=== PATIENT | male | born 1990 | race Two or more races ===

== ENCOUNTER 2023-06-11 13:03 | Outpatient (OUT) | payer BC, SELFPAY ==
[2023-06-11 13:31] LABS: Erythrocyte Sedimentation Rate 18 mm/hr (<=15)
[2023-06-11 13:40] LABS: C Reactive Protein <0.2 mg/dL (<=1.0)
[2023-06-11 13:55] LABS: Percent Iron Saturation 29.2 %
== END 2023-06-11 13:04 | disposition home or self-care (01) ==
LOC: LAB 13:05
PROVIDERS: PCP Nurse Practitioner
DX: G25.81 Restless legs syndrome (principal); E61.1 Iron deficiency
CPT/HCPCS: 36415; 82728; 83540; 83550; 85652; 86140

== ENCOUNTER 2024-07-27 13:51 | Outpatient (OUT) | payer BC, SELFPAY ==
--- NOTE | 2024-07-27 14:22 | XR_ITS ---
The [address] [address] Patient Name: SHAIKH Devon GARZA MRN: [id number] date: 1990 Sex: M Assigned Patient Location: [facility] Current Patient Location: Accession/Order Number: [id number] Exam Date: 07/27/2024 14:18 Report Date: 07/29/2024 06:18 At the request of: RIGO ADLER Procedure: XR foot LT min 3V PROCEDURE: XR foot LT min 3V HISTORY: Left Foot Pain COMPARISON: None. FINDINGS: BONES:No fracture, acute abnormality, or significant arthropathy. SOFT TISSUES:No visible soft tissue swelling. EFFUSION:None visible. OTHER: Negative. XR/XR foot LT min 3V IMPRESSION: 1. No acute bone abnormality or significant degenerative joint disease. 2. No appreciable loss of plantar arch. Electronically authenticated by: GATO SWEENEY Date: 07/29/2024 06:18
== END 2024-07-27 13:52 | disposition home or self-care (01) ==
LOC: RAD 13:54
PROVIDERS: PCP Nurse Practitioner; Visit Provider Podiatrist Foot & Ankle Surgery
DX: M79.672 Pain in left foot (principal)
CPT/HCPCS: 73630

== ENCOUNTER 2025-02-10 09:15 | Outpatient (OUT) | payer OTHER, SELFPAY ==
--- NOTE | 2025-02-10 11:28 | US_ITS ---
[place] [address] Patient Name: SHAIKH Devon GARZA MRN: [id number] date: 1990 Sex: M Assigned Patient Location: US Current Patient Location: US Accession/Order Number: [id number] Exam Date: 02/10/2025 13:05 Report Date: 02/10/2025 13:06 At the request of: ARIEL CHEN NP Procedure: US right upper quadrant LIMITED ABDOMINAL ULTRASOUND: CLINICAL HISTORY: Right Upper Quadrant Pain COMPARISON: None TECHNIQUE: Grayscale and color Doppler images of the right upper quadrant organs were obtained. FINDINGS: Pancreas: Visualized portions appear unremarkable. Liver: Unremarkable. Gallbladder: Small amount of sludge. No wall thickening. Negative Lofton sign. CBD: 1.6 mm RT KIDNEY: No Hydronephrosis US/US right upper quadrant IMPRESSION: GALLBLADDER SLUDGE. NO ACUTE PROCESS IS SEEN.. Impression dictated by: Reyes Cleveland Jr., D.O. 02/10/2025 1:06 PM Dictation Location: [place] [address] Electronically authenticated by: [id number] Y Date: 02/10/2025 13:06
== END 2025-02-10 09:16 | disposition home or self-care (01) ==
PROVIDERS: PCP Nurse Practitioner; Visit Provider Nurse Practitioner
DX: R10.11 Right upper quadrant pain (principal)
CPT/HCPCS: 76705

== ENCOUNTER 2025-02-26 08:02 | Outpatient (OUT) | payer OTHER, SELFPAY ==
--- OUTSIDE RECORDS SUMMARY | 2025-02-24 13:26 | XMS_ITS ---
Author Name Auto Generated Organization [facility] Care Team Providers Care Ged Preparation Teacher Name Role Phone JOSE SAHA Attending Unavailable GEMINI CHIN Referring Unavailable GEMINI CHIN Primary Care Unavailable LUIS CARLOS NEWMAN Attending Unavailable GEMINI CHIN Referring Unavailable GEMINI CHIN Primary Care Unavailable GEMINI CHIN Referring Unavailable GEMINI CHIN Primary Care Unavailable PROBLEMS DATE TYPE CONDITION / CODE ATTENDING STATUS [facility] 02/24/2025 Admitting Diagnosis Calculus of gallbladder without cholecystitis without obstruction / K80.20(ICD-10) JOSE SAHA Active [facility] 02/24/2025 Admitting Diagnosis Right upper quadrant pain / R10.11(ICD-10) JOSE SAHA Active [facility] 02/05/2025 Unknown Calculus of bile duct without cholangitis or cholecystitis without obstruction / K80.50(ICD-10) LUIS CARLOS NEWMAN [facility] 02/05/2025 Unknown Bacteriuria / R82.71(ICD-10) LUIS CARLOS NEWMAN [facility] 08/04/2024 Admitting diagnosis Encounter for screening for respiratory tuberculosis / Z11.1(ICD-10) NA [facility] PROCEDURES No Procedure Records Found RESULTS CONSULT Observed: 02/24/2025 1:15 PM Status: COMPLETED Source: [facility] [id number] Shaikh Garza [birth year] M Date Provider Department Center 02/24/2025 454-JOSE SAHA [facility] SURG Second Fl No family history on file Level of Service:65432 [place] OFFICE/OUTPATIENT ESTABLISHED LOW MDM 20 MIN Reason for Visit and Comments: Consult [484] - Consult for abdominal pain - reports recent GB US completed [facility] showing GB sludge. PROGRESS Observed: 02/24/2025 1:15 PM Status: COMPLETED Source: [facility] Subjective Patient ID: Shaikh Jeremiah is a 34 y.o. male who presents for Consult (Consult for abdominal pain - reports recent GB US completed [facility] showing GB sludge. ). Abdominal Pain This is a recurrent problem. The current episode started 1 to 4 weeks ago. The onset quality is gradual. The problem occurs 2 to 4 times per day. The most recent episode lasted 3 days. The problem has been resolved. The pain is located in the RUQ. The pain is at a severity of 6/10. The quality of the pain is aching, cramping and dull. The abdominal pain does not radiate. Associated symptoms include nausea. Pertinent negatives include no anorexia, belching, flatus, hematochezia, melena or weight loss. The pain is aggravated by eating. The pain is relieved by Nothing. Prior diagnostic workup includes ultrasound. 34 years old male is visiting for chronic right upper quadrant pain intermittently. He had at least 2 episodes of right upper quadrant pain attack resolving ER visit. He denies of fever or chills. He denies of jaundice. Review of Systems Constitutional: Negative. Negative for weight loss. HENT: Negative. Eyes: Negative. Respiratory: Negative. Cardiovascular: Negative. Gastrointestinal: Positive for abdominal pain and nausea. Negative for anorexia, flatus, hematochezia and melena. Endocrine: Negative. Genitourinary: Negative. Musculoskeletal: Negative. Skin: Negative. Allergic/Immunologic: Negative. Neurological: Negative. Hematological: Negative. Objective Visit Vitals BP 112/73 (BP Location: Left arm, Patient Position: Sitting) Pulse 73 Resp 16 Physical Exam HENT: Head: Atraumatic. Cardiovascular: Rate and Rhythm: Normal rate. Pulmonary: Effort: Pulmonary effort is normal. Abdominal: General: Abdomen is flat. Palpations: Abdomen is soft. Musculoskeletal: Cervical back: Neck supple. Neurological: Mental Status: He is alert and oriented to person, place, and time. US RIGHT UPPER QUADRANT Order: [id number] [place] [id number] Ultrasound Report Signed Patient: SHAIKH Devon GARZA MR#: [id number] : 1990 Acct:[id number] Age/Sex: 34 / M ADM Date: 02/10/25 Loc: US Attending Dr: Gemini Chin NP Ordering Physician: Gemini Chin NP Date of Service: 02/10/25 Procedure(s): US right upper quadrant Accession Number(s): [id number] cc: Gemini Chin NP [place] [address] Patient Name: SHAIKH Devon GARZA MRN: [id number] date: 1990 Sex: M Assigned Patient Location: US Current Patient Location: US Accession/Order Number: [id number] Exam Date: 02/10/2025 13:05 Report Date: 02/10/2025 13:06 At the request of: GEMINI CHIN NP Procedure: US right upper quadrant LIMITED ABDOMINAL ULTRASOUND: CLINICAL HISTORY: Right Upper Quadrant Pain COMPARISON: None TECHNIQUE: Grayscale and color Doppler images of the right upper quadrant organs were obtained. FINDINGS: Pancreas: Visualized portions appear unremarkable. Liver: Unremarkable. Gallbladder: Small amount of sludge. No wall thickening. Negative Lofton sign. CBD: 1.6 mm RT KIDNEY: No Hydronephrosis US/US right upper quadrant IMPRESSION: GALLBLADDER SLUDGE. NO ACUTE PROCESS IS SEEN.. Impression dictated by: Reyes Cleveland Jr., D.O. 02/10/2025 1:06 PM Dictation Location: [place] [address] Electronically authenticated by: [id number] Y Date: 02/10/2025 13:06 Dictated By: Reyes Cleveland M.D. Signed By: 02/10/25 1309 DD/ 1306 TD/TT: Product/Device Technologist: Exam End: -- Specimen Collected: 02/10/25 13:06 Last Resulted: 02/10/25 13:09 CT ABDOMEN PELVIS W IV CONTRAST Additional Contrast? None Order: [id number] Impression No acute pathology within the abdomen and pelvis. Appendix is normal. No obstructive uropathy. Contracted gallbladder without evidence of cholelithiasis or cholecystitis. Narrative EXAMINATION: CT OF THE ABDOMEN AND PELVIS WITH CONTRAST 12/03/2022 9:31 pm TECHNIQUE: CT of the abdomen and pelvis was performed with the administration of intravenous contrast. Multiplanar reformatted images are provided for review. Automated exposure control, iterative reconstruction, and/or weight based adjustment of the mA/kV was utilized to reduce the radiation dose to as low as reasonably achievable. COMPARISON: 12/30/2021 HISTORY: ORDERING SYSTEM PROVIDED HISTORY: RUQ abdominal pain, h/o cholelithiasis TECHNOLOGIST PROVIDED HISTORY: RUQ abdominal pain, h/o cholelithiasis Decision Support Exception - unselect if not a suspected or confirmed emergency medical condition->Emergency Medical Condition (MA) Reason for Exam: RUQ abdominal pain, h/o cholelithiasis FINDINGS: LOWER CHEST: Visualized portion of the lower chest demonstrates no acute abnormality. KIDNEYS AND URINARY TRACT: No renal calculi are identified. There is no evidence for hydronephrosis. The ureters are of normal course and caliber. ORGANS: Contracted gallbladder without evidence of cholelithiasis or cholecystitis. Visualized portions of the liver, spleen, pancreas, and adrenal glands demonstrate no acute abnormality. GI/BOWEL: No bowel obstruction. No evidence of acute appendicitis. PELVIS: The bladder and pelvic organs are unremarkable. PERITONEUM/RETROPERITONEUM: No free air or free fluid is noted. No pathologically enlarged lymphadenopathy. The vasculature do not demonstrate acute abnormality. BONES/SOFT TISSUES: The osseous structures demonstrate no acute abnormality. Exam End: 12/03/22 21:55 Specimen Collected: 12/03/22 22:08 Last Resulted: 12/03/22 22:44 Assessment/Plan Chronic cholecystitis Gallbladder sludge Schedule robotic cholecystectomy Informed consent was obtained. No diagnosis found. No orders of the defined types were placed in this encounter. No results found for this or any previous visit (from the past 36 hour(s)). No follow-ups on file. CULT,URINE Observed: 02/05/2025 1:49 PM Status: F Source: [facility] Specimen Description .CLEAN CATCH URINE Special Requests Site: Urine Culture NO GROWTH Report Status FINAL 02/06/2025 Performed By: #### UR #### [email or web address] [address] [place] [address] Mapping Engineer: Mike Cordon MD [address] [address] Mapping Engineer: Sin Grajeda MD CBC WITH DIFF Collected: 02/05/2025 12:57 PM Status: F Source: [facility] TYPE CODE TESTS RESULT OUT OF RANGE REFERENCE UNITS LAB WBC(LOINC) WBC Count 9.7 3.5-11.0 k/uL LAB RBC(LOINC) RBC Count 5.33 4.5-5.9 m/uL LAB HGB(LOINC) Hemoglobin 14.1 13.5-17.5 g/dL LAB HCT(LOINC) Hematocrit 43.0 41-53 % LAB MCV(LOINC) MCV 80.7 80-100 fL LAB MCH(LOINC) MCH 26.5 26-34 pg LAB MCHC(LOINC) MCHC 32.8 31-37 g/dL LAB RDW(LOINC) RDW 14.3 12.5-15.4 % LAB PLT(LOINC) Platelet Count 313 140-450 k/uL LAB MPVX(LOINC) MPV 8.7 6.0-12.0 fL LAB SEG(LOINC) Neutrophil (Seg) 55 36-66 % LAB LYM(LOINC) Lymphocyte 36 24-44 % LAB MON(LOINC) Monocyte 7 2-11 % LAB EO(LOINC) Eosinophil 2 1-4 % LAB BASO(LOINC) Basophil 0 0-2 % LAB ASEG(LOINC) Abs.Neutrophil (Seg) 5.40 1.8-7.7 k/uL LAB ALYM(LOINC) Abs. Lymph 3.50 1.0-4.8 k/uL LAB AMONO(LOINC) Abs. Monocyte 0.60 0.1-1.2 k/uL LAB AEO(LOINC) Abs. Eosinophil 0.20 0.0-0.4 k/uL LAB ABASO(LOINC) Abs. Basophil 0.00 0.0-0.2 k/uL Performed By: #### CDP, LIP, CP #### [address] [address] Mapping Engineer: Sin Grajeda MD COMP METABOLIC PROF Collected: 02/06/20 12:57 PM Status: F Source: [facility] TYPE CODE TESTS RESULT OUT OF RANGE REFERENCE UNITS LAB NA(LOINC) NA (Sodium) 141 135-144 mmol/L LAB K(LOINC) K (Potassium) 4.1 3.7-5.3 mmol/L LAB CL(LOINC) Chloride 102 98-107 mmol/L LAB HCO(LOINC) CO2 29 20-31 mmol/L LAB GAP(LOINC) Anion Gap 10 9-17 mmol/L LAB GLU(LOINC) Glucose 117 High 70-99 mg/dL LAB BUN(LOINC) BUN (Urea N) 12 6-20 mg/dL LAB CRE(LOINC) Creatinine 0.9 0.7-1.2 mg/dL LAB EGFR(LOINC) eGFR >90 >60 mL/min/1. 73m2 Result Comment: These results are not intended for use in patients <18 years of age. eGFR results are calculated without a race factor using the 2020 CKD-EPI equation. Careful clinical correlation is recommended, particularly when comparing to results calculated using previous equations. The CKD-EPI equation is less accurate in patients with extremes of muscle mass, extra-renal metabolism of creatine, excessive creatine ingestion, or following therapy that affects renal tubular secretion. LAB CA(LOINC) Calcium 9.3 8.6-10.4 mg/dL LAB TP(LOINC) Protein, Total 7.1 6.4-8.3 g/dL LAB ALB(LOINC) Albumin 4.5 3.5-5.2 g/dL LAB AG(LOINC) Albumin/Glob Ratio 1.7 1.0-2.5 LAB TBIL(LOINC) Bilirubin, Total 0.7 0.3-1.2 mg/dL LAB ALP(LOINC) Alkaline Phos 96 40-129 U/L LAB ALT(LOINC) ALT 16 5-41 U/L LAB AST(LOINC) AST 20 <40 U/L Performed By: #### CLARE, DANIELA, CP #### [address] [id number] Mapping Engineer: Sin Grajeda MD LIPASE Collected: 12:57 PM Status: F Source: [facility] TYPE CODE TESTS RESULT OUT OF RANGE REFERENCE UNITS LAB LIP(LOINC) Lipase 20 13-60 U/L Performed By: #### CDP, LIP, CP #### [address] [address] Mapping Engineer: Sin Grajeda MD UA W/REFLEX CULTURE Collected: 02/06/20 12:51 PM Status: F Source: [facility] TYPE CODE TESTS RESULT OUT OF RANGE REFERENCE UNITS LAB UCO(LOINC) Color Yellow YEL LAB UTU(LOINC) Clarity, Urine Clear CLEAR LAB UGL(LOINC) Glucose,Semi- qnt,Ur NEGATIVE NEG mg/dL LAB UBI(LOINC) Bilirubin, SemiQt,Ur NEGATIVE NEG LAB UKE(LOINC) Ketones, Urine NEGATIVE NEG mg/dL LAB USG(LOINC) Spec. [place],Ur 1.015 1.005-1.030 LAB UHB(LOINC) Blood, Urine NEGATIVE NEG LAB UPH(LOINC) PH,Ur 6.5 5.0-8.0 LAB UPR(LOINC) Protein, Semi-qnt,Ur NEGATIVE NEG mg/dL LAB UUR(LOINC) Urobilinogen, Ur Normal 0.0-1.0 EU/dL LAB UNI(LOINC) Nitrite,Ur NEGATIVE NEG LAB ULE(LOINC) Leukocyte Esterase TRACE Abnormal NEG Performed By: #### UAX, UMIC AO #### [address] [address] Mapping Engineer: Sin Grajeda MD URINALYSIS,MICRO Collected: 5 12:51 PM Status: F Source: [facility] TYPE CODE TESTS RESULT OUT OF RANGE REFERENCE UNITS LAB UWBC(LOINC) Urine WBC's 5 TO 10 0-5 /HPF LAB URBC(LOINC) Urine RBC's None 0-2 /HPF LAB EPITH(LOINC) Epithelial cells None 0-5 /HPF LAB BACT(LOINC) Bacteria FEW Abnormal NONE LAB UCOM(LOINC) Other Observations Utilizing a urinalysis as the only screening method to exclude a potential Abnormal NREQ Result Comment: uropathogen can be unreliable in many patient populations. Rapid screening tests are less sensitive than culture and if UTI is a clinical possibility, culture should be considered despite a negative urinalysis. Performed By: #### UAX, SILVANO AO #### [address] [address] Mapping Engineer: Sin Grajeda MD QUANTIFERON TB Collected: 4 12:54 PM Status: F Source: [facility] TYPE CODE TESTS RESULT OUT OF RANGE REFERENCE UNITS LAB QFGP(LOINC) Quanti TB Gold Plus Negative Negative Result Comment: (NOTE) INTERPRETIVE INFORMATION:Quantiferon TB Gold Plus Interferon gamma release is measured for specimens from each of the four collection tubes. A qualitative result (Negative, Positive, or Indeterminate) is based on interpretation of the four values: NIL, MITOGEN minus NIL (MITOGEN-NIL), TB1 minus NIL (TB1-NIL), and TB2 minus NIL (TB2-NIL). The NIL value represents nonspecific reactivity produced by the patient specimen. The MITOGEN-NIL value serves as the positive control for the patient specimen, demonstrating successful lymphocyte activity. The TB1-NIL tube specifically detects CD4+ lymphocyte reactivity, specifically stimulated by the TB1 antigens. The TB2-NIL tube detects both CD4+ and CD8+ lymphocyte reactivity, stimulated by TB2 antigens. An overall Negative result does not completely rule out TB infection. A false-positive result in the absence of other clinical evidence of TB infection is not uncommon. Refer to: Updated Guidelines for Using Interferon Gamma Release Assays to Detect Mycobacterium tuberculosis Infection -- [place], 2010 (http://www.cdc.gov/mmwr/preview/mmwrhtml/hm4710m0.htm), for more information concerning test performance in low-prevalence populations and use in occupational screening. Performed By: [employer] [address] [id number] [employer] Mixer Operator: Joel Bolden MD, PhD CLIA Number: [id number] LAB QFMIT(LOINC) Quanti Kin minus NIL 9.94 IU/mL LAB QFTB1(LOINC) Quanti TB1 minus NIL 0.01 <=0.34 IU/mL LAB QFTB2(LOINC) Quanti TB2 minus NIL 0.02 <=0.34 IU/mL LAB QFNIL(LOINC) QuantiFERON NIL 0.06 IU/ mL Performed By: #### AQF #### [facility] [address] [place] [address] Mapping Engineer: Jayjay Dao MD ALLERGIES DATE TYPE / CODE NAME / CODE REACTION SEVERITY SOURCE SYSTEMIC/[id number]( SNOMED CT) NO KNOWN ALLERGIES [facility] ENCOUNTERS ADMIT/DISCHARGE ACCOUNT NUMBER ADMITTING ENCOUNTER CLASS LOCATION SOURCE 02/24/2025/ 5 [id number] Ambulatory Building:[facility] SURG [facility] 02/05/2025/ 5 [id number] Emergency Building:PER EDRoom: OTFPBed: DESIREE [facility] 08/04/2024/ 4 [id number] Ambulatory Building:[facility] 08/01/2024/ 4 [id number] Ambulatory Building:PER [facility] PAYERS ENCOUNTER GUARANTOR PAYER SUBSCRIBER SOURCE 02/24/2025 Primary Insurance:CIGNAPo licy Number: [id number] cali Date:2024-10-07 SHAIKH TEJWADDOB: [id number] [place] [address] [facility] 02/05/2025 SHAIKH TEJWADDOB: [id number] [place], [place] [address]Kya: () Primary Insurance:CIGNAPo licy Number: [id number] cali Date:1072-62-64YSZENY HERNANDEZ [address]CH: YUN PROSPERWWADDOB: [id number] [place], [place] [address]Bdr: (HP) [facility] 08/04/2024 YUN FAParvezWADDOB: [id number] [place], [place] [address]Fgl: () Primary Insurance:RingCaptchaPol icy Number: [id number] tive Date:2022-10-07 SHAIKH PROSPERParvezWADDOB: [id number] [place], [place] [address]Ynp: () [facility] 08/01/2024 YUN PROSPERParvezWADDOB: [id number] [place], [place] [address]Tqs: () Primary Insurance:RingCaptchaPol icy Number: [id number] tive Date:2022-10-07 SHAIKH PROSPERParvezDDOB: [id number] [place], [place] [address]Kmt: () [facility]
--- NOTE | 2025-02-26 08:05 | NM_ITS ---
The [address] [address] Patient Name: SHAIKH Devon GARZA MRN: [id number] date: 1990 Sex: M Assigned Patient Location: [place] Current Patient Location: [place] Accession/Order Number: [id number] Exam Date: 02/26/2025 15:31 Report Date: 02/26/2025 15:32 At the request of: ARIEL CHEN NP Procedure: HI hepatobiliary w pharm Nuclear Medicine Hepatobiliary imaging with CCK TECHNIQUE: 4.9mCi of technetium 99m labeled mebrofenin was administered intravenously. Sequential planar imaging of the upper abdomen performed. 8 ounces of ensure was administered orally. HISTORY: Right upper quadrant pain for 3 weeks. Gallbladder ultrasound demonstrating gallbladder sludge. COMPARISON:None Homogeneous uptake of the liver identified. There is early uptake identified within the common bile duct. There is early uptake identified in the gallbladder. There is early uptake identified in the small bowel. The gallbladder ejection fraction is 89%. HI/HI hepatobiliary w pharm IMPRESSION: Patent cystic and common bile duct. Normal gallbladder ejection fraction. Impression dictated by: Giovany Strickland M.D. 02/26/2025 3:32 PM Dictation Location: [place] [address] Electronically authenticated by: [id number] Y Date: 02/26/2025 15:32
== END 2025-02-26 08:03 | disposition home or self-care (01) ==
LOC: NM 08:02
PROVIDERS: PCP Nurse Practitioner; Visit Provider Nurse Practitioner
DX: R10.11 Right upper quadrant pain (principal)
CPT/HCPCS: 78227; A9537